=== PATIENT | female | born 2000 | race African-American/Black ===

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

== ENCOUNTER 2022-12-01 18:17 | Emergency (ER) | payer BC, SELFPAY ==
[2022-12-01 18:35] VITALS: BP 123/68; PULSE 90; RESP 20; TEMP 36.8; O2SAT 100
--- NOTE | 2022-12-01 18:52 | ECG_ITS ---
Measurements Intervals [place] Rate: 79 P: 56 ND: 146 QRS: 25 QRSD: 83 T: 27 QT: 368 QTc: 424 Interpretive Statements SINUS RHYTHM WITH MARKED SINUS ARRHYTHMIA EARLY PRECORDIAL R/S TRANSITION MINIMAL Q WAVES- HIGH LATERAL LEADS BORDERLINE ECG NO PREVIOUS ECG AVAILABLE FOR COMPARISON Electronically Signed On 12-02-2022 11:35:53 CDT by Clinton Deleon D.O.
--- NOTE | 2022-12-01 19:07 | ED.SOB ---
HPI - SOB/Dyspnea General Chief Complaint: Shortness of Breath/Dyspnea Stated Complaint: Chest pain;Shortness of breath Time Seen by Provider: 12/01/22 18:47 Source: patient and RN notes reviewed Mode of arrival: ambulatory Limitations: no limitations History of Present Illness HPI Narrative: Patient presents today stating that she spontaneously lost consciousness while standing in a field playing softball approximately 3 hours prior to arrival. She lost consciousness for approximately 15-20 seconds and this was witnessed by the rest of her softball team. Since that time she has had sternal chest pain and pressure. She did have shortness of breath, but states this has resolved prior to exam. Denies any additional symptoms to include abdominal pain, nausea vomiting, numbness or tingling, chills or sweats, recent illness, dizziness or lightheadedness. She currently rates her pain 5/10 and has taken no medication for symptoms prior to arrival. Patient states that when she runs to exercise she does experience chest pain every single time she runs. She has not ever had this evaluated. Patient has history of an aunt that had an NE in her 20s and a great grandfather that had an NE early in his life as well. Related Data Home Medications Medication Instructions Recorded Confirmed No Home Medications 12/01/22 12/01/22 Allergies Allergy/AdvReac Type Severity Reaction Status Date / Time No Known Allergies Allergy Verified 12/01/22 18:32 Review of Systems Review of Systems: CONSTITUTIONAL: Denies body aches, fever, chills, or sweats. EYES: Denies visual changes, redness, or discharge. ENT: Denies rhinorrhea, congestion, sore throat, or otalgia. CARDIOVASCULAR: Denies palpitations, or edema.+ chest pain RESPIRATORY: Denies cough or dyspnea. GASTROINTESTINAL: Denies abdominal pain, nausea, vomiting, or diarrhea. GENITOURINARY: Denies dysuria or hematuria. SKIN: Denies rash, itching, or wounds. MUSCULOSKELETAL: Denies back pain, joint pain, or myalgia. NEUROLOGIC: Denies headache, numbness, tingling, or weakness. PSYCH: Denies depression or anxiety. PMFSH Comments At time of signature, I have reviewed and agree with nursing past medical, surgical, social and family history unless otherwise noted. Please see nursing chart for further information. There is no relevant family history pertinent to the presenting complaint Exam Narrative: GENERAL: Well-appearing, well-nourished, and in no acute distress. HEAD: Normocephalic, atraumatic. EYES: EOMI. No redness or drainage. Conjunctivae normal. ENT: Mucous membranes pink and moist. NECK: Normal AROM. CHEST: No respiratory distress. Clear to auscultation. HEART: No murmur appreciated. Normal peripheral pulses.+ irregular heart rate ABDOMEN: Soft, nontender, nondistended, normal active bowel sounds. EXTREMITIES: Normal range of motion. No edema. SKIN: Warm, dry, no rash. Capillary refill normal. Normal skin turgor. NEURO: No focal deficits. Alert and oriented x3. Gait steady. PSYCH: Normal affect. No signs of depression or anxiety. Course Course Level of Care: Express Care Visit Vital Signs Vital signs: Vital Signs Temperature 98.2 F 12/01/22 18:35 Pulse Rate 90 12/01/22 18:35 Respiratory Rate 20 12/01/22 18:35 Blood Pressure 123/68 12/01/22 18:35 Pulse Oximetry 100 12/01/22 18:35 Oxygen Delivery Room Air 12/01/22 18:35 Temperature 98.2 F 12/01/22 18:35 Pulse Rate 90 12/01/22 18:35 Respiratory Rate 20 12/01/22 18:35 Blood Pressure 123/68 12/01/22 18:35 Pulse Oximetry 100 12/01/22 18:35 Oxygen Delivery Room Air 12/01/22 18:35 Reviewed Transfer Transfered to: [facility] Transportation: Other (Private vehicle) Transfer rationale: Chest pain, syncopal episode Accepting physician: Shawanda MDM - SOB/Dyspnea MDM Narrative Medical decision making narrative: Due to patient's chest pain with
== END 2022-12-01 19:20 | disposition short-term general hospital (02) ==
PROVIDERS: Emergency Provider Nurse Practitioner
DX: R55 Syncope and collapse (principal); R07.9 Chest pain, unspecified
CPT/HCPCS: 93005; 99213; G0463